=== PATIENT | female | born 1960 | race Two or more races ===

== ENCOUNTER 2017-05-30 23:20 | Emergency (ER) | payer MEDICAID ==
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
== END 2017-05-31 00:25 | disposition home or self-care (01) ==
LOC: ER 23:20
DX: S39.012A Strain of muscle, fascia and tendon of lower back, initial encounter (principal); E78.5 Hyperlipidemia, unspecified; V49.88XA Car occupant (driver) (passenger) injured in other specified transport accidents, initial encounter; Y93.89 Activity, other specified; Y92.488 Other paved roadways as the place of occurrence of the external cause; Y99.8 Other external cause status
CPT/HCPCS: Z7502

== ENCOUNTER 2018-04-05 08:54 | Emergency (ER) | payer MEDICAID ==
[2018-04-05 09:51] LABS: URINE MICROSCOPIC INDICATED? YES; URINE SOURCE RANDOM
[2018-04-05 09:56] LABS: URINE BILIRUBIN NEGATIVE (NEGATIVE); URINE BLOOD SMALL (NEGATIVE); URINE GLUCOSE (UA) NEGATIVE (NEGATIVE); URINE KETONE NEGATIVE (NEGATIVE); URINE LEUKOCYTE ESTERASE NEGATIVE (NEGATIVE); URINE NITRATE NEGATIVE (NEGATIVE); URINE PH 6.5 (4.6 - 8.0); URINE PROTEIN NEGATIVE (NEGATIVE); URINE UROBILINOGEN 0.2 E.U./dL (0.2 - 1.0)
[2018-04-05 09:57] LABS: URINE CLARITY HAZY (CLEAR); URINE COLOR YELLOW
--- NOTE | 2018-04-05 09:58 | ED Physician Chart ---
ED Chief Complaint/HPI - Patient Information Date Seen:: 04/05/18 Time Seen:: 09:40 Chief Complaint:: rash History of Present Illness:: Patient awoke with pruritic rash this morning. The rash is located over both upper abdominal quadrants and is larger on the right side than the left. Patient developed urinary incontinence in early February. Dysuria started 3 weeks ago. She took for 2 weeks an antibiotic and a medication for burning with urination purchased [id number] in [place]. Patient's dysuria recurred 2-3 days ago. No chills, fever, increase in her chronic back pain. Allergies:: Allergies Allergy/AdvReac Type Severity Reaction Status Date / Time No Known Allergies Allergy Verified 08/25/16 15:09 Vitals:: Vital Signs - 8 hr 04/05/18 09:06 Temp 97.8 F HR 78 RR 16 BP 127/76 O2 Sat % 99 Historian:: Patient ED Review of Systems - Review of Systems General/Constitutional: No fever, No chills, No weight loss, No weakness, No diaphoresis, No edema, No loss of appetite Skin: Rash, No rash, No bruising Head: No headache, No light-headedness Eyes: No loss of vision, No pain, No diplopia ENT: No earache, No nasal drainage, No sore throat, No tinnitus Neck: No neck pain, No swelling, No thyromegaly, No stiffness, No mass noted Cardio Vascular: No chest pain, No palpitations, No PND, No orthopnea, No edema Pulmonary: No SOB, No cough, No sputum, No wheezing GI: No nausea, No vomiting, No diarrhea, No pain, No melena, No hematochezia, No constipation, No hematemesis G/U: Dysuria, No frequency, No hematuria Musculoskeletal: No bone or joint pain, No back pain, No muscle pain Endocrine: No polyuria, No polydipsia Psychiatric: No prior psych history, No depression, No anxiety, No suicidal ideation Hematopoietic: No bruising, No lymphadenopathy Allergic/Immuno: No urticaria, No angioedema Neurological: No syncope, No focal symptoms, No weakness, No paresthesia, No headache, No seizure, No dizziness, No confusion, No vertigo ED Past Medical History - Past Medical History Past Medical History: Asthma/COPD, Dyslipidemia, Arthritis, Other ( hyperlipidemia; diffuse arthritis with diffuse arthralgias including chronic neck and back pain) Family History: Diabetes Melitus, Cancer, Other (arthritis and dementia) Social History: Non Smoker, Other (smokes marijuana and occasionally drinks alcohol) Surgical History: , other (tubal ligation) Psychiatricy History: None Family Medical History - Family Member Mother History Unknown: Yes Ethnicity: Living Status: Unknown Hx Family Cancer: Yes (LYMPHOMA) Hx Family Coronary Artery Disease: No Hx Family Congestive Heart Failure: No Hx Family Hypertension: No Hx Family Stroke: No Hx Family Diabetes: No Hx Family Seizures: No Hx Family Dementia: Yes Hx Family AIDS: No Hx Family HIV: No Hx Family COPD: No Hx Family Hepatitis: No Hx Family Psychiatric Problems: No Hx Family Tuberculosis: No ED Physical Exam - Physical Examination General/Constitutional: Awake, Well-developed, well-nourished, Alert, No distress, GCS 15, Non-toxic appearing, Ambulatory Head: Atraumatic Eyes: Lids, conjuctiva normal, PERRL, EOMI Other Skin comments:: 6 x 4 area of pale erythema right upper quadrant and 3 x 1 area of paler erythema left upper quadrant ENMT: External ears, nose nl, Nasal exam nl, Lips, teeth, gums nl Neck: Nontender, Full ROM w/o pain, No JVD, No nuchal rigidity, No bruit, No mass, No stridor Respiratory: Nl effort/Exclusion, Clear to Auscultation, No Wheeze/Rhonchi/Rales Cardio Vascular: RRR, No murmur, gallop, rubs, NL S1 S2 GI: No tenderness/rebounding/guarding, No organomegaly, No hernia, Normal BS's, Nondistended, No mass/bruits, No McBurney tenderness : No CVA tenderness Extremities: No tenderness or effusion, Full ROM, normal strength in all extremities, No edema, Normal digits & nails Neuro/Psych: Alert/oriented, DTR's symmetric, Normal sensory exam, Normal motor strength, Judgement/insight normal, Mood normal, Normal gait, No focal deficits Misc: Normal back, No paraspinal tenderness ED Labs/Radiology/EKG Results - Lab Results Results: Laboratory Results - last 24 hr 04/05/18 09:20 Urine Source RANDOM Urine Color YELLOW Urine Clarity HAZY Urine pH 6.5 Ur Specific [place] 1.025 Urine Protein NEGATIVE Urine Glucose (UA) NEGATIVE Urine Ketones NEGATIVE Urine Blood SMALL H Urine Nitrate NEGATIVE Urine Bilirubin NEGATIVE Urine Urobilinogen 0.2 Ur Leukocyte Esterase NEGATIVE Urine RBC 2-5 Urine WBC 0-2 Ur Epithelial Cells OCCASIONAL Urine Bacteria FEW Urine Mucus FEW ED Assessment - Assessment General Assessment: Patient was worried about having shingles. Her rash however is bilateral and not vesicular so she does not have shingles. The rash is more like a local allergic reaction. The urinalysis shows no signs of urinary tract infection. Patient is given Atarax 25 mg orally in the emergency department before discharge. The etiology of her dysuria is uncertain. ED Septic Shock - . Is Septic Shock (SBP<90, OR Lactate>4 mmol\L) present?: No - <6hrs of presentation: Vital Signs: Vital Signs - 8 hr //18 09:06 Temp 97.8 F HR 78 RR 16 BP 127/76 O2 Sat % 99 ED Reassessment (Disposition) - Reassessment Reassessment Condition:: Unchanged - Diagnosis Diagnosis:: Local allergic skin reaction - Aftercare/Follow up Instructions Medication Prescribed:: Atarax 25 mg #20 to take 1 4 times a day. - Patient Disposition Discharge/Transfer:: Home Condition at Disposition:: Stable, Unchanged
[2018-04-05 10:01] LABS: URINE EPITHELIAL CELLS OCCASIONAL /lpf (FEW); URINE WBC 0-2 /hpf (0-5)
[2018-04-05 10:02] LABS: URINE BACTERIA FEW /hpf (NONE SEEN)
== END 2018-04-05 10:30 | disposition home or self-care (01) ==
LOC: ER 08:54
DX: T78.40XA Allergy, unspecified, initial encounter (principal); J45.909 Unspecified asthma, uncomplicated; J44.9 Chronic obstructive pulmonary disease, unspecified; X58.XXXA Exposure to other specified factors, initial encounter
CPT/HCPCS: 81001-TC; Z7502